=== PATIENT | female | born 1990 ===

== ENCOUNTER 2020-03-16 19:05 | Emergency (ER) | payer OTHER ==
[2020-03-16] MEDS: Bacitracin/Neomycin/Polymyxin B Oint 0.9 GM U/D Packet TOP ONE (19:49)
--- NOTE | 2020-03-16 19:56 | EDM.PDOC ---
ED HPI GENERAL MEDICAL PROBLEM - General Chief Complaint: Upper Extremity Injury/Pain Stated Complaint: L finger injury Time Seen by Provider: 03/16/20 19:25 Source of Information: Reports: Patient History Limitations: Reports: No Limitations - History of Present Illness INITIAL COMMENTS - FREE TEXT/NARRATIVE: Patient working at [employer] when left index finger sustained crushing injury. Pinched between to pieces of metal at distal portion of finger. Small amount bleeding. Tetanus is UTD. No other reported injury. 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: - Past Surgical History HEENT Surgical History: Reports: LASIK, Oral Surgery Social & Family History - Family History HEENT: Reports: None Cardiac: Reports: None Respiratory: Reports: COPD GI: Reports: None : Reports: None Psychiatric: Reports: Schizophrenia Oncologic: Reports: Leukemia, Lung - Tobacco Use Tobacco Use Status *Q: Never Tobacco User Second Hand Smoke Exposure: No - Caffeine Use Caffeine Use: Reports: Coffee Caffeine Use Comment: 2 cups of coffee a day - Recreational Drug Use Recreational Drug Use: No Review of Systems - Review of Systems Review Of Systems: See Below Musculoskeletal: Reports: Other (left index finger injury) Skin: Reports: Wound Neurological: Denies: Numbness, Tingling ED EXAM, GENERAL - Physical Exam Exam: See Below Exam Limited By: No Limitations General Appearance: Alert, WD/WN, No Apparent Distress Eye Exam: Bilateral Eye: EOMI, PERRL Ears: Hearing Grossly Normal Throat/Mouth: Normal Voice Head: Atraumatic, Normocephalic Extremities: Normal Capillary Refill, Other (left index finger shows two small interruptions of skin medially and laterally. Nail intact. No deformity. Minimal swelling. Tender distal half of the involved finger. Nontender proximal finger. Other 4 fingers/palm/wrist normal appearance) Neurological: Alert, Oriented, Normal Cognition Psychiatric: Normal Affect, Normal Mood Skin Exam: Warm, Normal Color Course - Vital Signs Last Recorded V/S: Last Vital Signs Temp 36.7 C 03/16/20 19:11 Pulse 89 03/16/20 19:11 Resp 16 03/16/20 19:11 BP 138/78 03/16/20 19:11 Pulse Ox 100 03/16/20 19:11 - Orders/Labs/Meds Orders: Active Orders 24 hr Category Date Time Status Fingers Second Digit Lt F1 [CR] Stat Exams 03/16/20 19:09 Taken Meds: Medications Discontinued Medications Generic Name Dose Route Start Last Admin Trade Name Ap PRN Reason Stop Dose Admin Cephalexin 500 mg 03/16/20 19:53 Keflex PO 03/16/20 19:54 ONETIME ONE Neomycin/Polymyxin/Bacitracin 1 each 03/16/20 19:44 03/16/20 19:49 Triple Antibiotic Oint TOP 03/16/20 19:45 1 each ONETIME ONE Administration - Re-Assessments/Exams Free Text/Narrative Re-Assessment/Exam: 03/16/20 20:08 Xray of finger confirmed tuft fracture distal phalanx. Given the small fracture along with the two interruptions in dermis will treat with antibiotics. No requirement to suture. Nursing staff cleansed wound/soaked it and applied sterile dressing. Wound care reviewed with patient prior to discharge. Departure - Departure Time of Disposition: 19:52 Disposition: Home, Self-Care 01 Condition: Good Clinical Impression: Crushing injury of left index finger, initial encounter, Open fracture of tuft of distal phalanx of finger - Discharge Information *PRESCRIPTION DRUG MONITORING PROGRAM REVIEWED*: Not Applicable *COPY OF PRESCRIPTION DRUG MONITORING REPORT IN PATIENT CHAD: Not Applicable Prescriptions: cephALEXin [Keflex] 500 mg PO Q8H #15 cap Referrals: PCP,Unknown [Primary Care Provider] - Forms: ED Department Discharge Additional Instructions: Take antibiotics for 5 days. Wound care as reviewed. Keep finger bandaged until Friday morning and then start to do daily dressing changes twice daily. Keep finger covered while it heals. Apply antibiotic ointment to finger tip while it heals. Follow up if you have any problems or develop signs of infection. Sepsis Event Note (ED) - Evaluation Sepsis Screening Result: No Definite Risk - Focused Exam Vital Signs: Vital Signs Temp Pulse Resp BP Pulse Ox 03/16/20 19:11 36.7 C 89 16 138/78 100 03/16/20 19:10 36.7 C 89 16 138/78 100 - My Orders Last 24 Hours: My Active Orders 03/16/20 19:09 Fingers Second Digit Lt F1 [CR] Stat - Assessment/Plan Last 24 Hours: My Active Orders 03/16/20 19:09 Fingers Second Digit Lt F1 [CR] Stat
[2020-03-16] MEDS: Cephalexin 250 MG Cap PO ONE (20:23)
== END 2020-03-16 20:35 | disposition home or self-care (01) ==
LOC: LL.ED 19:05
DX: S67.191A Crushing injury of left index finger, initial encounter (principal); S62.631B Displaced fracture of distal phalanx of left index finger, initial encounter for open fracture; W23.0XXA Caught, crushed, jammed, or pinched between moving objects, initial encounter; Y92.89 Other specified places as the place of occurrence of the external cause; Y99.0 Civilian activity done for income or pay
CPT/HCPCS: 73140; 99283; A9270; 99284